=== PATIENT | female | born 1980 | race Caucasian/White ===

== ENCOUNTER 2019-05-23 16:34 | Emergency (ER) | payer SELFPAY ==
[2019-05-23 17:01] LABS: Absolute Lymphocytes (CBC) 2.4 K/uL (0.7-4.9); Hematocrit 39.2 % (36.0-45.0); Lymphocytes % 25.8 % (15.3-44.8); MPV 10.2 fL (7.6-11.3); RBC Red Blood Cell Count 4.57 M/uL (3.86-4.86)
[2019-05-23 17:32] LABS: Potassium 3.6 mmol/L (3.5-5.1)
--- NOTE | 2019-05-23 17:50 | RAD REPORT ---
EXAM DESCRIPTION: US - Transvaginal OB - 05/23/2019 5:35 pm CLINICAL HISTORY: with pelvic pain COMPARISON: None. FINDINGS: The uterus measures 9 x 4 x 5 centimeters. A normal appearing gestational sac is present within the endometrium. Subchorionic bleed is not seen. Within this is a yolk sac and pole with a crown-rump length 1.1 centimeters. Cardiac activity 133 beats per minute Right and left ovary appear normal. . An adnexal mass is not noted. No significant free fluid is seen. IMPRESSION: Single live intrauterine with an estimated gestational age 7 weeks 1 day [place] 01/08/2020
[2019-05-23 18:03] LABS: Urine Blood NEGATIVE (NEG); Urine Glucose NEGATIVE (NEG); Urine Protein NEGATIVE (NEG); Urine Specific Gravity >1.030 (1.005-1.030)
--- NOTE | 2019-05-23 18:53 | EDPHYS ---
Physician Documentation [facility] Name: Pauline Russell Age: 38 yrs Sex: Female : 1980 Arrival Date: 05/23/2019 Time: 16:36 Bed 27 Private MD: ED Physician Martin Paredes HPI: 05/23 17:04 This 38 yrs old Female presents to ER via Ambulatory with complaints of snw Abdominal Pain, 8 wks . 17:04 The patient presents with abdominal pain in the lower abdomen. Onset: The snw symptoms/episode began/occurred suddenly, yesterday, and became persistent. The symptoms do not radiate. Associated signs and symptoms: none. The symptoms are described as sharp, shooting. Severity of pain: At its worst the pain was mild moderate in the emergency department the pain is unchanged. The patient has not experienced similar symptoms in the past. has not seen OB at [facility] for this , + miscarriage at 16-17 wks in 2018. 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 - Coronavirus screen:: The patient has NOT traveled to [place] in the past 14 days. The patient has NOT had contact with known/suspected case of Coronavirus?. - Social history:: Smoking status: Patient denies any tobacco usage or history of. - Ebola Screening: : Patient negative for fever greater than or equal to 101.5 degrees Fahrenheit, and additional compatible Ebola Virus Disease symptoms Patient denies exposure to infectious person Patient denies travel to an Ebola-affected area in the 21 days before illness onset No symptoms or risks identified at this time. ROS: 17:02 Constitutional: Negative for fever, chills, and weight loss, Eyes: Negative for injury, snw pain, redness, and discharge, ENT: Negative for injury, pain, and discharge, Neck: Negative for injury, pain, and swelling, Cardiovascular: Negative for chest pain, palpitations, and edema, Respiratory: Negative for shortness of breath, cough, wheezing, and pleuritic chest pain, Abdomen/GI: Positive for abdominal pain, nausea, denies vomiting, diarrhea, and constipation, Back: Negative for injury and pain, : Negative for injury, bleeding, discharge, and swelling, MS/Extremity: Negative for injury and deformity, Skin: Negative for injury, rash, and discoloration, Neuro: Negative for headache, weakness, numbness, tingling, and seizure, Psych: Negative for depression, anxiety, suicide ideation, homicidal ideation, and hallucinations. Exam: 17:02 Constitutional: This is a well developed, well nourished patient who is awake, alert, snw and in no acute distress. Head/Face: Normocephalic, atraumatic. Eyes: Pupils equal round and reactive to light, extra-ocular motions intact. Lids and lashes normal. Conjunctiva and sclera are non-icteric and not injected. Cornea within normal limits. Periorbital areas with no swelling, redness, or edema. ENT: Nares patent. No nasal discharge, no septal abnormalities noted. Tympanic membranes are normal and external auditory canals are clear. Oropharynx with no redness, swelling, or masses, exudates, or evidence of obstruction, uvula midline. Mucous membranes moist. Neck: Trachea midline, no thyromegaly or masses palpated, and no cervical lymphadenopathy. Supple, full range of motion without nuchal rigidity, or vertebral point tenderness. No Meningismus. Chest/axilla: Normal chest wall appearance and motion. Nontender with no deformity. No lesions are appreciated. Cardiovascular: Regular rate and rhythm with a normal S1 and S2. No gallops, murmurs, or rubs. Normal PMI, no JVD. No pulse deficits. Respiratory: Lungs have equal breath sounds bilaterally, clear to auscultation and percussion. No rales, rhonchi or wheezes noted. No increased work of breathing, no retractions or nasal flaring. Back: No spinal tenderness. No costovertebral tenderness. Full range of motion. Skin: Warm, dry with normal turgor. Normal color with no rashes, no lesions, and no evidence of cellulitis. MS/ Extremity: Pulses equal, no cyanosis. Neurovascular intact. Full, normal range of motion. Neuro: Awake and alert, GCS 15, oriented to person, place, time, and situation. Cranial nerves II-XII grossly intact. Motor strength 5/5 in all extremities. Sensory grossly intact. Cerebellar exam normal. Normal gait. Psych: Awake, alert, with orientation to person, place and time. Behavior, mood, and affect are within normal limits. 17:02 Abdomen/GI: Inspection: abdomen appears normal, Bowel sounds: normal, Palpation: moderate abdominal tenderness, in the right lower quadrant and left lower quadrant. Vital Signs: 16:45 BP 130 / 76; Pulse 88; Resp 17 S; Temp 98(O); Pulse Ox 100% on R/A; Weight 63.5 kg (R); ca1 Height 5 ft. 4 in. (162.56 cm) (R); Pain 6/10; 17:44 BP 119 / 88; Pulse 72; Resp 15 S; Pulse Ox 100% on R/A; ca1 19:17 BP 127 / 78; Pulse 70; Resp 18; Temp 98; Pulse Ox 100% on R/A; mg2 16:45 Body Mass Index 24.03 (63.50 kg, 162.56 cm) ca1 MDM: 16:45 Patient medically screened. snw 18:54 Data reviewed: vital signs, nurses notes. Data interpreted: Pulse oximetry: on room air snw is 100 %. Interpretation: normal. Counseling: I had a detailed discussion with the patient and/or guardian regarding: the historical points, exam findings, and any diagnostic results supporting the discharge/admit diagnosis, the presence of at least one elevated blood pressure reading (>120/80) during this emergency department visit, lab results, radiology results, the need for outpatient follow up, to return to the emergency department if symptoms worsen or persist or if there are any questions or concerns that arise at home. Special discussion: Based on the history and exam findings, there is no indication for further emergent testing or inpatient evaluation. I discussed with the patient/guardian the need to see the OB Gyne specialist for further evaluation of the symptoms. 05/23 16:39 Order name: Quantitative Hcg; Complete Time: 17:53 snw 05/23 16:39 Order name: Abo/rh Typing; Complete Time: 18:14 snw 05/23 16:39 Order name: Basic Metabolic Panel; Complete Time: 17:53 snw 05/23 16:39 Order name: CBC with Diff; Complete Time: 17:53 snw 05/23 16:57 Order name: Urine Dipstick--Ancillary (enter results); Complete Time: 18:14 bd 05/23 16:57 Order name: Urine --Ancillary (enter results); Complete Time: 18:14 bd 05/23 16:39 Order name: Urine Test (obtain specimen); Complete Time: 16:56 snw 05/23 16:39 Order name: IV Saline Lock; Complete Time: 16:47 snw 05/23 16:39 Order name: Labs collected and sent; Complete Time: 16:47 snw 05/23 16:39 Order name: NPO; Complete Time: 16:47 snw 05/23 16:39 Order name: Urine Dipstick-Ancillary (obtain specimen); Complete Time: 16:56 snw 05/23 16:53 Order name: US Transvaginal Ob; Complete Time: 18:49 snw 05/23 17:53 Order name: PO challenge: juice please; Complete Time: 18:04 snw Administered Medications: 19:00 Drug: Tylenol 1000 mg Route: PO; mg2 19:16 Follow up: Response: No adverse reaction; Medication administered at discharge. mg2 Disposition: 05/23/19 18:52 Discharged to Home. Impression: state, Lower abdominal pain, unspecified. - Condition is Stable. - Discharge Instructions: Abdominal Pain During , High-Fiber Diet, Intestinal Gas and Gas Pains, Pediatric, First Trimester of . - Prescriptions for Vitamin 27- 0.8 mg Oral Tablet - take 1 tablet by ORAL route once daily; 30 tablet. - Work release form, Medication Reconciliation Form, Thank You Letter, Antibiotic Education, Prescription Opioid Use form. - Follow up: Emergency Department; When: As needed; Reason: Worsening of condition. Follow up: Private Physician; When: 1 - 2 days; Reason: Recheck today's complaints, Continuance of care, Re-evaluation by your physician. Addendum: 05/26/2019 07:12 Co-signature as Attending Physician, Martin Paredes MD. r n Signatures: Dispatcher [employer] EDMS Izabella White, VICE PRESIDENT OF BUSINESS DEVELOPMENT-C VICE PRESIDENT OF BUSINESS DEVELOPMENT-Csnw Martin Paredes MD MD rn Gardose, Michele, RN RN mg2 Acob, Amara RN RN ca1 Corrections: (The following items were deleted from the chart) 05/23 19:18 18:52 05/23/2019 18:52 Discharged to Home. Impression: state; Lower abdominal mg2 pain, unspecified. Condition is Stable. Forms are Medication Reconciliation Form, Thank You Letter, Antibiotic Education, Prescription Opioid Use. Follow up: Emergency Department; When: As needed; Reason: Worsening of condition. Follow up: Private Physician; When: 1 - 2 days; Reason: Recheck today's complaints, Continuance of care, Re-evaluation by your physician. snw
--- NOTE | 2019-05-23 18:53 | ER ---
Nurse's Notes [facility] Name: Pauline Russell Age: 38 yrs Sex: Female : 1980 Arrival Date: 05/23/2019 Time: 16:36 Bed 27 Private MD: Diagnosis: state;Lower abdominal pain, unspecified Presentation: 05/23 16:42 Presenting complaint: Patient states: 8 weeks . Lower abdominal pain since last ca1 night, worst within the last 2 hrs. Sharp, intermittent. Reports nausea. Denies vaginal bleeding. Reports previous miscarriage last February 2019 at 15-16 wk of . Transition of care: patient was not received from another setting of care. Onset of symptoms was May 23, 2019. Risk Assessment: Do you want to hurt yourself or someone else? Patient reports no desire to harm self or others. Initial Sepsis Screen: Does the patient meet any 2 criteria? No. Patient's initial sepsis screen is negative. Does the patient have a suspected source of infection? No. Patient's initial sepsis screen is negative. Care prior to arrival: None. 16:42 Method Of Arrival: Ambulatory ca1 16:42 Acuity: MARKUS 3 ca1 Triage Assessment: 16:45 General: Appears in no apparent distress. comfortable, Behavior is calm, cooperative, ca1 appropriate for age. Pain: Complains of pain in right lower quadrant and left lower quadrant Pain does not radiate. Pain currently is 6 out of 10 on a pain scale. at worst was 10 out of 10 on a pain scale. Quality of pain is described as sharp, Pain began 1 day ago. Is intermittent. EENT: No deficits noted. No signs and/or symptoms were reported regarding the EENT system. Neuro: Level of Consciousness is awake, alert, obeys commands, Oriented to person, place, time, situation, Appropriate for age. Cardiovascular: Heart tones S1 S2 present Capillary refill < 3 seconds Patient's skin is warm and dry. Respiratory: Airway is patent Respiratory effort is even, unlabored, Respiratory pattern is regular, symmetrical, Breath sounds are clear bilaterally. GI: Abdomen is round non-distended, Bowel sounds present X 4 quads. Abd is soft and non tender X 4 quads. GI: Reports nausea. : No signs and/or symptoms were reported regarding the genitourinary system. Derm: Skin is intact, is healthy with good turgor, Skin is pink, warm \T\ dry. Musculoskeletal: Circulation, motion, and sensation intact. Capillary refill < 3 seconds. 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 - Coronavirus screen:: The patient has NOT traveled to [place] in the past 14 days. The patient has NOT had contact with known/suspected case of Coronavirus?. - Social history:: Smoking status: Patient denies any tobacco usage or history of. - Ebola Screening: : Patient negative for fever greater than or equal to 101.5 degrees Fahrenheit, and additional compatible Ebola Virus Disease symptoms Patient denies exposure to infectious person Patient denies travel to an Ebola-affected area in the 21 days before illness onset No symptoms or risks identified at this time. Screenin:48 Abuse screen: Denies threats or abuse. Denies injuries from another. Nutritional mg2 screening: No deficits noted. Tuberculosis screening: No symptoms or risk factors identified. Fall Risk IV access (20 points). Assessment: 16:49 Reassessment: SEE TRIAGE ASSESSMENT. ca1 17:44 Reassessment: Patient appears in no apparent distress at this time. Patient and/or ca1 family updated on plan of care and expected duration. Pain level reassessed. Patient is alert, oriented x 3, equal unlabored respirations, skin warm/dry/pink. 19:17 Reassessment: Patient appears in no apparent distress at this time. Patient states mg2 feeling better. Vital Signs: 16:45 BP 130 / 76; Pulse 88; Resp 17 S; Temp 98(O); Pulse Ox 100% on R/A; Weight 63.5 kg (R); ca1 Height 5 ft. 4 in. (162.56 cm) (R); Pain 6/10; 17:44 BP 119 / 88; Pulse 72; Resp 15 S; Pulse Ox 100% on R/A; ca1 19:17 BP 127 / 78; Pulse 70; Resp 18; Temp 98; Pulse Ox 100% on R/A; mg2 16:45 Body Mass Index 24.03 (63.50 kg, 162.56 cm) ca1 ED Course: 16:36 Patient arrived in ED. mr 16:38 Amara Ann, RN is Primary Nurse. ca1 16:39 [facility] White [facility]C [facility] snw 16:39 Martin Paredes MD is Attending Physician. snw 16:44 Triage completed. ca1 16:45 Arm band placed on right wrist. ca1 16:48 No provider procedures requiring assistance completed. Inserted saline lock: 20 gauge mg2 in right antecubital area, using aseptic technique. Blood collected. 16:49 Patient has correct armband on for positive identification. Placed in gown. Bed in low ca1 position. Call light in reach. Side rails up X 1. campus monitor on. Pulse ox on. NIBP on. Warm blanket given. 17:35 US Transvaginal Ob In Process Unspecified. EDMS 19:18 IV discontinued, intact, bleeding controlled, No redness/swelling at site. Pressure mg2 dressing applied. Administered Medications: 19:00 Drug: Tylenol 1000 mg Route: PO; mg2 19:16 Follow up: Response: No adverse reaction; Medication administered at discharge. mg2 Outcome: 18:52 Discharge ordered by . snw 19:18 Discharged to home ambulatory. mg2 19:18 Condition: stable 19:18 Discharge instructions given to patient, Instructed on discharge instructions, follow up and referral plans. medication usage, Demonstrated understanding of instructions, follow-up care, medications, Prescriptions given X 1. 19:18 Patient left the ED. mg2 Signatures: Dispatcher [employer] EDVT Izabella White FNP-C [facility] Paula SawyerGenaro, RN RN mg2 Amara Ann, SATHYA RN ca1
[2019-05-23] MEDS ORDERED: ACETAMINOPHEN 500 MG TAB ONE (19:01)
[2019-05-23 19:56] VITALS: TEMP 98; O2SAT 100
[2019-05-23 19:58] VITALS: BP 127/78
== END 2019-05-23 19:18 | disposition home or self-care (01) ==
LOC: ER 16:34
DX: O26.891 Other specified pregnancy related conditions, first trimester (principal); R10.30 Lower abdominal pain, unspecified
CPT/HCPCS: 36415; 76817; 80048; 81003; 81025; 84702; 85025; 86900; 86901; 99284

== ENCOUNTER → 2023-04-20 | Emergency (ER) | payer SELFPAY ==
[~2023-04-20] MED LIST: ACETAMINOPHEN 500 MG TAB ONE; DIPHENHYDRAMINE 50 MG/ML VIAL ONE; METOCLOPRAMIDE 10 MG/2mL INJ ONE; Magnesium Sulfate 2gm IVPB 2 G/50 ML BAG IV ONE; NA CHLORIDE 0.9% 1,000 ML ONE
[2023-04-20 17:41] LABS: Absolute Lymphocytes (CBC) 1.8 K/uL (0.7-4.9); Hematocrit 44.9 % (36.0-45.0); MCV 87.3 fL (80-100); MPV 8.3 fL (7.6-11.3); Platelets 279 thou/uL (152-406); RBC Red Blood Cell Count 5.14 M/uL (3.86-4.86)
--- NOTE | 2023-04-20 18:04 | RAD REPORT ---
EXAM DESCRIPTION: RAD - Chest Single View - 04/20/2023 5:59 pm CLINICAL HISTORY: CHEST PAIN Chest pain. COMPARISON: <Comparisons> FINDINGS: Portable technique limits examination quality. The lungs are grossly clear. The heart is normal in size. No displaced fractures. IMPRESSION: No acute intrathoracic process suspected.
[2023-04-20 18:10] LABS: ALT/SGPT 83 U/L (13-56); Albumin 3.4 g/dL (3.4-5.0); Alkaline Phosphatase 208 U/L (45-117); BUN Blood Urea Nitrogen 22 mg/dL (7-18); Bicarbonate 23 mEq/L (21-32); Bilirubin Total 0.6 mg/dL (0.2-1.0); Glomerular Filtration Rate 98 ml/min (=/>90); Glucose Level 129 mg/dL (74-106); Lipase 38 U/L (13-75); NT PRO-BNP 7 pg/mL (<125); Protein, Total 7.9 g/dL (6.4-8.2); Sodium Level 134 mEq/L (136-145); Troponin High Sensitivity 3.1 pg/mL (<58.9)
[2023-04-20 18:12] LABS: AST/SGOT 101 U/L (15-37); Bilirubin Direct < 0.1 mg/dL (0-0.2); Bilirubin Indirect, Calculated ND mg/dL (0.2-0.8); Magnesium 1.8 mg/dL (1.6-2.4); Potassium 3.7 mEq/L (3.5-5.1)
--- NOTE | 2023-04-20 18:16 | RAD REPORT ---
EXAM DESCRIPTION: CT - Head Brain Wo Cont - 04/20/2023 6:08 pm CLINICAL HISTORY: HEADACHE Headache, drowsiness COMPARISON: <Comparisons> TECHNIQUE: All CT scans are performed using dose optimization technique as appropriate and may inclu de automated exposure control or mA/KV adjustment according to patient size. FINDINGS: No intracranial hemorrhage, hydrocephalus or extra-axial fluid collection.No areas of brai n edema or evidence of midline shift. The paranasal sinuses and mastoids are clear. The calvarium is intact. IMPRESSION: No acute intracranial abnormality.
[2023-04-20 18:42] LABS: Specific Gravity 1.025 (1.005-1.030); Urine Bacteria None Seen /HPF (<20); Urine Bilirubin NEGATIVE (Negative); Urine Blood Negative (Negative); Urine Clarity Clear (Clear); Urine Color Light-Yellow (Yellow); Urine Glucose NEGATIVE (Negative); Urine Mucus Slight /HPF (None Seen); Urine Protein TRACE (Negative); Urine RBC <5 /HPF (None Seen); Urine Urobilinogen Normal (Normal)
[2023-04-20 18:43] LABS: Specific Gravity 1.025 (1.005-1.030)
--- NOTE | 2023-04-20 19:18 | ER ---
Nurse's Notes [facility] Name: Pauline Russell Age: 42 yrs Sex: Female : 1980 Arrival Date: 04/20/2023 Time: 16:57 Bed 18 Private MD: Diagnosis: Nausea with vomiting, unspecified;Headache;Chest pain, unspecified;Diarrhea, unspecified Presentation: 04/20 17:57 Chief complaint: EMS states: toned out to patient work for nausea and chest pain. ld1 Coronavirus screen: At this time, the client does not indicate any symptoms associated with coronavirus-19. Ebola Screen: No symptoms or risks identified at this time. Initial Sepsis Screen: Does the patient meet any 2 criteria? No. Patient's initial sepsis screen is negative. Does the patient have a suspected source of infection? No. Patient's initial sepsis screen is negative. Risk Assessment: Do you want to hurt yourself or someone else? Patient reports no desire to harm self or others. Onset of symptoms was April 20, 2023. 17:57 Method Of Arrival: EMS: [facility] ld1 17:57 Acuity: MARKUS 3 ld1 Triage Assessment: 17:59 General: Appears in no apparent distress. comfortable, Behavior is cooperative, ld1 anxious. Pain: Complains of pain in chest Pain does not radiate. Pain currently is 6 out of 10 on a pain scale. Quality of pain is described as throbbing, Pain began 1 day ago. Is continuous. EENT: No signs and/or symptoms were reported regarding the EENT system. Neuro: Level of Consciousness is awake, alert, obeys commands, Oriented to person, place, time, situation. Cardiovascular: Capillary refill < 3 seconds Patient's skin is warm and dry. Respiratory: Airway is patent Respiratory effort is even, unlabored. GI: Abdomen is round non-distended. : No signs and/or symptoms were reported regarding the genitourinary system. Derm: No signs and/or symptoms reported regarding the dermatologic system. Musculoskeletal: No signs and/or symptoms reported regarding the musculoskeletal system. 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 - Social history:: Smoking status: Patient denies any tobacco usage or history of. Patient/guardian denies using alcohol. - Family history:: not pertinent. Screenin:08 [facility] ED Fall Risk Assessment (Adult) History of falling in the last 3 months, me1 including since admission No falls in past 3 months (0 pts) Confusion or Disorientation No (0 pts) Intoxicated or Sedated No (0 pts) Impaired Gait No (0 pts) Mobility Assist Device Used No (0 pt) Altered Elimination No (0 pt) Score/Fall Risk Level 0 - 2 = Low Risk Maintained a safe environment, Provided non-skid footwear, Hourly rounding (assess needs \T\ fall precautionary measures) done. Abuse screen: Denies threats or abuse. Nutritional screening: No deficits noted. Tuberculosis screening: No symptoms or risk factors identified. Assessment: 19:05 General: Appears uncomfortable, ill, obese, well groomed, well developed, well me1 nourished, Behavior is calm, cooperative, appropriate for age, Reports c/o migraine, nausea and chest pain. Pain: Complains of pain in chest and head Pain does not radiate. Pain currently is 8 out of 10 on a pain scale. Quality of pain is described as sharp, Pain began gradually, 2-3 days ago. Is continuous. Neuro: Level of Consciousness is awake, alert, obeys commands, Oriented to person, place, time, situation, Appropriate for age. Cardiovascular: Capillary refill < 3 seconds Patient's skin is warm and dry. Respiratory: Airway is patent Respiratory effort is even, unlabored, Respiratory pattern is regular, symmetrical. GI: Reports nausea. Vital Signs: 17:01 BP 173 / 102; Pulse 84; Resp 16; Pulse Ox 100% on R/A; me1 17:57 BP 151 / 99; Pulse 110; Resp 22; Temp 97.9(TE); Pulse Ox 97% on R/A; Pain 6/10; ld1 18:00 BP 149 / 99; Pulse 97; Resp 17; Pulse Ox 98% on R/A; me1 18:00 BP 135 / 90; Pulse 92; Resp 16; Pulse Ox 99% on R/A; me1 19:30 BP 130 / 82; Pulse 86; Resp 18; Pulse Ox 99% on R/A; cm10 17:57 Pain Scale: Adult ld1 ED Course: 17:05 Patient arrived in ED. mv 17:06 Jonathan Cedillo MD is Attending Physician. rt 17:40 Lipase Sent. bc6 17:40 Basic Metabolic Panel Sent. bc6 17:40 CBC with Diff Sent. bc6 17:40 LFT's Sent. bc6 17:40 Magnesium Sent. bc6 17:40 NT PRO-BNP Sent. bc6 17:40 Troponin HS Sent. bc6 17:40 Missed attempt(s): 20 gauge in left antecubital area. bc6 17:45 Arm band placed on Patient placed in an exam room, on a stretcher. ll1 17:59 Triage completed. ld1 18:00 Prudence King, SATHYA is Primary Nurse. me1 18:01 XRAY Chest (1 view) In Process Unspecified. EDMS 18:10 CT Head Brain wo Cont In Process Unspecified. EDMS 18:37 Inserted saline lock: 22 gauge in right antecubital area, using aseptic technique. me1 19:08 No provider procedures requiring assistance completed. me1 19:08 Patient has correct armband on for positive identification. Bed in low position. Call me1 light in reach. Side rails up X2. Provided Education on: POC. Verbalized understanding. . 19:57 IV discontinued, intact, bleeding controlled, No redness/swelling at site. Pressure cm10 dressing applied. Administered Medications: 18:37 Drug: metoCLOPramide IVP 10 mg IVP once; over 1 to 2 minutes Route: IVP; Site: right me1 antecubital; 19:04 Follow up: Response: No adverse reaction; Nausea is decreased me1 18:37 Drug: diphenhydrAMINE IVP 25 mg IVP once Route: IVP; Site: right antecubital; me1 19:04 Follow up: Response: No adverse reaction me1 18:37 Drug: Acetaminophen PO 1000 mg PO once Route: PO; me1 19:04 Follow up: Response: No adverse reaction me1 18:37 Drug: Magnesium Sulfate IVPB 2 grams IVPB once over 2 hrs Route: IVPB; Infused Over: 2 me1 hrs; Site: right antecubital; 19:57 Follow up: Response: No adverse reaction; IV Status: Completed infusion cm10 18:38 Drug: NS 0.9% IV 1000 ml IV at 1 bolus Per protocol; 1000 mL bolus Route: IV; Rate: 1 me1 bolus; Site: right antecubital; 19:58 Follow up: Response: No adverse reaction; IV Status: Completed infusion; IV Intake: cm10 1000ml Medication: 19:10 VIS not applicable for this client. me1 Intake: 19:58 IV: 1000ml; Total: 1000ml. cm10 Outcome: 19:17 Discharge ordered by MD. rt 19:58 Discharged to home ambulatory, cm10 19:58 Condition: good 19:58 Discharge instructions given to patient, Instructed on discharge instructions, follow up and referral plans. medication usage, Demonstrated understanding of instructions, follow-up care, medications, Prescriptions given X 1, 19:59 Patient left the ED. cm10 Signatures: Dispatcher [employer] Tiarra Grande RN RN 1 Elva Villanueva RN RN mine1 Jonathan Cedillo MD MD rt Cathie Tony 6 Yoly Back RN RN 10 Prudence King RN RN me1 Katarzyna Birmingham mv Corrections: (The following items were deleted from the chart) 17:59 17:59 Allergies: No Known Allergies; ld1 ld1 19:04 17:57 Chief complaint: EMS states: toned out to patient work for nausea and chest pain. me1 ld1
--- NOTE | 2023-04-20 19:18 | EDPHYS ---
Physician Documentation [facility] Name: Pauline Russell Age: 42 yrs Sex: Female : 1980 Arrival Date: 04/20/2023 Time: 16:57 Bed 18 Private MD: ED Physician Jonathan Cedillo HPI: 04/20 19:48 This 42 yrs old Female presents to ER via EMS with complaints of Headache. rt 19:48 Patient presents to the ED with headache, nausea, vomiting, diarrhea, chest discomfort rt starting yesterday. She reports that the headache is frontal in nature, aching in nature. She does have history of chronic headaches, similar in character but worse in severity today. Denies other acute complaints at this time, symptoms are moderate in severity, no other aggravating or elevating factors.. [employer]: 19:09 LMP 04/10/2023, unknown me1 Historical: - Allergies: 17:59 Iodine; ld1 17:59 PENICILLINS; ld1 - PMHx: 17:59 Anxiety; Hypertensive disorder; ld1 - Immunization history:: Adult Immunizations up to date. - Social history:: Smoking status: Patient denies any tobacco usage or history of. Patient/guardian denies using alcohol. - Family history:: not pertinent. ROS: 19:48 Constitutional: Negative for fever, chills, and weight loss, Respiratory: Negative for rt shortness of breath, cough, wheezing, and pleuritic chest pain, MS/Extremity: Negative for injury and deformity, Skin: Negative for injury, rash, and discoloration, Psych: Negative for depression, anxiety, suicide ideation, homicidal ideation, and hallucinations, 19:48 Cardiovascular: Positive for chest pain, Negative for edema, 19:48 Abdomen/GI: Positive for nausea, vomiting, and diarrhea, Negative for abdominal pain, 19:48 Neuro: Positive for headache, Negative for altered mental status, Exam: 19:48 Constitutional: This is a well developed, well nourished patient who is awake, alert, rt and in no acute distress. Head/Face: Normocephalic, atraumatic. Chest/axilla: Normal chest wall appearance and motion. Nontender with no deformity. No lesions are appreciated. Cardiovascular: Regular rate and rhythm with a normal S1 and S2. No gallops, murmurs, or rubs. Normal PMI, no JVD. No pulse deficits. Respiratory: Lungs have equal breath sounds bilaterally, clear to auscultation and percussion. No rales, rhonchi or wheezes noted. No increased work of breathing, no retractions or nasal flaring. Abdomen/GI: Soft, non-tender, with normal bowel sounds. No distension or tympany. No guarding or rebound. No evidence of tenderness throughout. Skin: Warm, dry with normal turgor. Normal color with no rashes, no lesions, and no evidence of cellulitis. MS/ Extremity: Pulses equal, no cyanosis. Neurovascular intact. Full, normal range of motion. Neuro: Awake and alert, GCS 15, oriented to person, place, time, and situation. Cranial nerves II-XII grossly intact. Motor strength 5/5 in all extremities. Sensory grossly intact. Cerebellar exam normal. Normal gait. Psych: Awake, alert, with orientation to person, place and time. Behavior, mood, and affect are within normal limits. 19:48 ECG was reviewed by the Attending Physician. Vital Signs: 17:01 BP 173 / 102; Pulse 84; Resp 16; Pulse Ox 100% on R/A; me1 17:57 BP 151 / 99; Pulse 110; Resp 22; Temp 97.9(TE); Pulse Ox 97% on R/A; Pain 6/10; ld1 18:00 BP 149 / 99; Pulse 97; Resp 17; Pulse Ox 98% on R/A; me1 18:00 BP 135 / 90; Pulse 92; Resp 16; Pulse Ox 99% on R/A; me1 19:30 BP 130 / 82; Pulse 86; Resp 18; Pulse Ox 99% on R/A; cm10 17:57 Pain Scale: Adult ld1 MDM: 17:06 Patient medically screened. rt 19:48 Differential Diagnosis Migraine, intracranial hemorrhage, ACS, nonspecific chest pain, rt gastroenteritis, viral send. Data reviewed: vital signs, nurses notes, lab test result(s), EKG, radiologic studies. I considered the following discharge prescriptions or medication management in the emergency department Medications were administered in the Emergency Department. See MAR. Independent interpretation of the following test(s) in the Emergency Department CT Scan: My interpretation is No intracranial hemorrhage seen on interpretation of CT scan images. Test considered but Not performed: CT: Benign abdominal examination, CT scan of the abdomen pelvis not indicated. Care significantly affected by the following chronic conditions: Hypertension. Counseling: I had a detailed discussion with the patient and/or guardian regarding the historical points, exam findings, and any diagnostic results supporting the discharge/admit diagnosis, lab results, radiology results, the need for outpatient follow up, to return to the emergency department if symptoms worsen or persist or if there are any questions or concerns that arise at home. Response to treatment: the patient's symptoms have markedly improved after treatment. 04/20 17:13 Order name: Basic Metabolic Panel; Complete Time: 18:28 rt 04/20 17:13 Order name: CBC with Diff; Complete Time: 18:28 rt 04/20 17:13 Order name: LFT's; Complete Time: 18:28 rt 04/20 17:13 Order name: Magnesium; Complete Time: 18:28 rt 04/20 17:13 Order name: NT PRO-BNP; Complete Time: 18:28 rt 04/20 17:13 Order name: Troponin HS; Complete Time: 18:28 rt 04/20 17:13 Order name: Lipase; Complete Time: 18:28 rt 04/20 17:13 Order name: UAM; Complete Time: 18:44 rt 04/20 18:37 Order name: Test, Urine; Complete Time: 18:51 EDMS 04/20 17:13 Order name: XRAY Chest (1 view); Complete Time: 18:28 rt 04/20 17:13 Order name: CT Head Brain wo Cont; Complete Time: 18:28 rt 04/20 17:13 Order name: EKG; Complete Time: 17:14 rt 04/20 17:13 Order name: Cardiac monitoring; Complete Time: 19:00 rt 04/20 17:13 Order name: EKG - Nurse/Tech; Complete Time: 19:00 rt 04/20 17:13 Order name: IV Saline Lock; Complete Time: 18:38 rt 04/20 17:13 Order name: Labs collected and sent; Complete Time: 17:40 rt 04/20 17:13 Order name: O2 Per Protocol; Complete Time: 18:38 rt 04/20 17:13 Order name: O2 Sat Monitoring; Complete Time: 18:38 rt EC:48 Rate is 112 beats/min. Rhythm is regular, Sinus tachycardia with No ectopy. QRS [place] is rt Normal. MD interval is normal. QRS interval is normal. QT interval is normal. No Q waves. T waves are Normal. No ST changes noted. Administered Medications: 18:37 Drug: metoCLOPramide IVP 10 mg IVP once; over 1 to 2 minutes Route: IVP; Site: right me1 antecubital; 19:04 Follow up: Response: No adverse reaction; Nausea is decreased me1 18:37 Drug: diphenhydrAMINE IVP 25 mg IVP once Route: IVP; Site: right antecubital; me1 19:04 Follow up: Response: No adverse reaction me1 18:37 Drug: Acetaminophen PO 1000 mg PO once Route: PO; me1 19:04 Follow up: Response: No adverse reaction me1 18:37 Drug: Magnesium Sulfate IVPB 2 grams IVPB once over 2 hrs Route: IVPB; Infused Over: 2 me1 hrs; Site: right antecubital; 19:57 Follow up: Response: No adverse reaction; IV Status: Completed infusion cm10 18:38 Drug: NS 0.9% IV 1000 ml IV at 1 bolus Per protocol; 1000 mL bolus Route: IV; Rate: 1 me1 bolus; Site: right antecubital; 19:58 Follow up: Response: No adverse reaction; IV Status: Completed infusion; IV Intake: cm10 1000ml Disposition Summary: 04/20/23 19:17 Discharge Ordered Notes: Location: Home rt Problem: new rt Symptoms: have improved rt Condition: Stable rt Diagnosis - Nausea with vomiting, unspecified rt - Headache rt - Chest pain, unspecified rt - Diarrhea, unspecified rt Followup: rt - With: Private Physician - When: 2 - 3 days - Reason: Discharge Instructions: - Discharge Summary Sheet rt - Nonspecific Chest Pain, Adult rt - Diarrhea, Adult rt - General Headache Without Cause rt - Nausea and Vomiting, Adult rt Forms: - Medication Reconciliation Form rt - Thank You Letter rt - Antibiotic Education rt - Prescription Opioid Use rt - Patient Portal Instructions rt - Leadership Thank You Letter rt Prescriptions: - Reglan 10 mg Oral tablet - take 1 tablet ORAL route every 6 hours As needed for headache, nausea; 18 rt tablet; Refills: 0, Product Selection Permitted Signatures: Dispatcher [employer] Elva Disla RN RN ld1 Jonathan Cedillo MD MD rt Prudence King RN RN me1 Yoly Back RN cm10 Corrections: (The following items were deleted from the chart) 1759 17:59 Allergies: No Known Allergies; ld1 ld1 18:37 17:14 TEST, SERUM+SC.LAB.BRZ ordered. EDMS EDMS
[2023-04-20 23:28] VITALS: TEMP 97.9; O2SAT 99
[2023-04-20 23:39] VITALS: BP 130/82
== END ==
LOC: ER 16:57
DX: R51.9 Headache, unspecified (principal); R11.2 Nausea with vomiting, unspecified; R19.7 Diarrhea, unspecified; R07.9 Chest pain, unspecified
CPT/HCPCS: 36415; 70450; 71045; 80048; 80076; 81001; 81025; 83690; 83735; 83880; 84484; 85025; 93005; J1200; J2765; J3475; J7030

== ENCOUNTER 2024-02-03 14:40 | Emergency (ER) | payer OTHER ==
--- NOTE | 2024-02-03 16:03 | RAD REPORT ---
EXAMINATION: ONE VIEW CHEST XR CLINICAL INDICATION: Female, 43 years old.CHEST PAIN TECHNIQUE: 1 View, AP supine, X-ray of the chest was performed. [id number]. COMPARISON: No prior exam. FINDINGS: Lungs and pleura: Clear lungs. No effusion. Heart and mediastinum: Normal heart size. Unremarkable mediastinal contours. Osseous structures: No acute abnormality. Tubes/lines: None Other: None. IMPRESSION: No acute intrathoracic abnormality.
[2024-02-03 17:02] LABS: Absolute Basophils 0.1 K/uL (0-0.5); Absolute Eosinophils 0.1 K/uL (0-0.5); Absolute Lymphocytes (CBC) 1.5 K/uL (0.7-4.9); Absolute Monocytes 0.5 K/uL (0.1-1.3); Absolute Neutrophil 6.3 K/uL (1.8-8.0); Basophils % 0.7 % (0-1.3); Eosinophils % 1.6 % (0-4.4); Hematocrit 46.8 % (36.0-45.0); Hemoglobin 15.7 g/dL (12.0-15.0); Lymphocytes % 17.7 % (15.3-44.8); MCH 30.6 pg (27.0-35.0); MCHC 33.6 g/dL (32.0-36.0); MPV 9.7 fL (7.6-11.3); Monocytes % 6.4 % (3.3-12.3); Neutrophils % 73.6 % (41.7-73.7); Platelets 235 thou/uL (152-406); RBC Red Blood Cell Count 5.14 M/uL (3.86-4.86); Red Cell Distribution Width 13.2 % (12.1-15.2)
[2024-02-03] MEDS ORDERED: DIPHENHYDRAMINE 50 MG/ML VIAL ONE (17:02)
[2024-02-03] MEDS ORDERED: NA CHLORIDE 0.9% 50 ML ONE (17:03)
[2024-02-03] MEDS ORDERED: METOCLOPRAMIDE 10 MG/2mL INJ ONE (17:03)
[2024-02-03] MEDS ORDERED: NA CHLORIDE 0.9% 1,000 ML ONE (17:03)
[2024-02-03 17:09] LABS: PT Prothrombin Time 12.2 SECONDS (9.4-12.5); Protime INR 1.09
[2024-02-03 17:36] LABS: Anion Gap 10.3 mEq/L (5.0-15.0); BUN Blood Urea Nitrogen 11 mg/dL (7-18); Bicarbonate 26 mEq/L (21-32); Glomerular Filtration Rate 93 ml/min (=/>90); Glucose Level 91 mg/dL (74-106); NT PRO-BNP 14 pg/mL (<125); Potassium 3.3 mEq/L (3.5-5.1); Sodium Level 130 mEq/L (136-145); Troponin High Sensitivity < 3.0 pg/mL (<58.9)
--- NOTE | 2024-02-03 17:53 | EDPHYS ---
Physician Documentation [facility] Name: Pauline Russell Age: 43 yrs Sex: Female : 1980 Arrival Date: 02/03/2024 Time: 14:40 Bed 7 Private MD: ED Physician Margarito Myrick HPI: 02/02 15:23 This 43 yrs old Female presents to ER via Ambulatory with complaints of Chest ec2 Pain, Dizziness. 15:23 Patient with history of anxiety as well as hypertension arrives today for evaluation of ec2 chest pain and feeling unwell. Reports symptom onset of yesterday. States that she has history of anxiety and that she was similar however worse. Patient reports some lightheadedness, some whole body numbness as well. Reports some nausea and vomiting as well.. Historical: - Allergies: 15:12 Iodine; aa5 15:12 PENICILLINS; aa5 - PMHx: 15:12 Anxiety; Hypertensive disorder; aa5 - PSHx: 15:12 Right hip (Unknown); aa5 - Immunization history:: Adult Immunizations unknown. - Infectious Disease History:: Denies. - Social history:: Smoking status: Patient reports the use of cigarette tobacco products, denies chronic smoking, but will smoke occasionally. ROS: 15:23 Constitutional: as per hpi ec2 Exam: 15:23 Constitutional: GEN: NAD Head: atraumatic Eyes: EOMI Ears: External ears are ec2 normal. CV: tachycardia LUNGS: no respiratory distress ABD: non-distended SKIN: no evidence of rashes MSK: no evidence of trauma Vital Signs: 15:08 BP 153 / 103; Pulse 113; Resp 20 S; Temp 98.7(O); Pulse Ox 100% on R/A; Weight 83.91 kg aa5 (R); Height 5 ft. 4 in. (R); 17:22 BP 125 / 84; Pulse 93; Resp 16; Pulse Ox 98% on R/A; Pain 0/10; ss 17:22 BP 124 / 84; Pulse 85; Pulse Ox 98% ; ec2 18:06 BP 134 / 81; Pulse 88; Resp 16; Pulse Ox 97% on R/A; Pain 0/10; ss 15:08 Body Mass Index 31.75 (83.91 kg, 162.56 cm) aa5 17:22 Pain Scale: Adult ss 18:06 Pain Scale: Adult ss MDM: 15:19 Medical Screening Exam initiated ec2 15:23 Data reviewed: vital signs. ED course: Patient arrives today for feeling unwell. ec2 Examination remarkable for anxious individual who slightly tachycardic and otherwise in no acute distress. EKG obtained, independently reviewed and interpreted by me, shows normal sinus rhythm, rate of 99, no acute ST segment elevations, intervals are nonactionable.. 17:52 ED course: On reassessment patient with marked improvement in symptoms. Suspect anxiety ec2 causing the patient's symptoms. Will discharge home and have follow-up with primary care doctor. Return precautions given.. 02/02 15:12 Order name: Basic Metabolic Panel; Complete Time: 17:41 ec2 02/02 15:12 Order name: CBC with Diff; Complete Time: 17:22 ec2 02/02 15:12 Order name: NT PRO-BNP; Complete Time: 17:41 ec2 02/02 15:12 Order name: PT-INR; Complete Time: 17:22 ec2 02/02 15:12 Order name: Troponin HS; Complete Time: 17:41 ec2 02/02 15:12 Order name: XRAY Chest (1 view); Complete Time: 16:44 ec2 02/02 15:12 Order name: EKG; Complete Time: 15:12 ec2 02/02 15:12 Order name: Cardiac monitoring; Complete Time: 16:47 ec2 02/02 15:12 Order name: EKG - Nurse/Tech; Complete Time: 16:20 ec2 02/02 15:12 Order name: IV Saline Lock; Complete Time: 16:47 ec2 02/02 15:12 Order name: Labs collected and sent; Complete Time: 16:47 ec2 02/02 15:12 Order name: O2 Per Protocol; Complete Time: 16:47 ec2 02/02 15:12 Order name: O2 Sat Monitoring; Complete Time: 16:47 ec2 Administered Medications: 17:15 Drug: metoCLOPramide IVP 10 mg IVP once; over 1 to 2 minutes {Note: placed in 50mL NS ss to infuse slowly .} Route: IVP; Site: right antecubital; 17:55 Follow up: Response: No adverse reaction ss 17:15 Drug: diphenhydrAMINE IVP 25 mg IVP once Route: IVP; Site: right antecubital; ss 17:55 Follow up: Response: No adverse reaction ss 17:15 Drug: NS 0.9% IV 1000 ml IV at 1000 ml once; to be given as a bolus over 60 minutes ss Route: IV; Rate: 1000 ml; Site: right antecubital; 18:08 Follow up: IV Status: IV converted to saline lock; IV Intake: 600ml ss 17:59 Drug: Potassium Chloride PO 40 mEq PO once Route: PO; ss 18:06 Follow up: Response: No adverse reaction ss Disposition Summary: 02/03/24 17:53 Discharge Ordered Notes: Location: Home ec2 Condition: Stable ec2 Diagnosis - Chest pain, unspecified ec2 - Dizziness and giddiness ec2 - Hypokalemia ec2 Followup: ec2 - With: Private Physician - When: - Reason: Re-evaluation by your physician Discharge Instructions: - Discharge Summary Sheet ec2 - Nonspecific Chest Pain, Adult ec2 - Generalized Anxiety Disorder, Adult ec2 Forms: - Medication Reconciliation Form ec2 - Antibiotic Education ec2 - Prescription Opioid Use ec2 - Patient Portal Instructions ec2 - Leadership Thank You Letter ec2 Prescriptions: - Reglan 10 mg Oral Tablet - take 1 tablet ORAL route every 6 hours take 30 minutes before meals and at ec2 bedtime; 20 tablet; Refills: 0, Product Selection Permitted Signatures: Dispatcher [employer] Lauren Beaver RN RN aa5 Lelo Steel RN RN Margarito Myrick MD MD ec2 Corrections: (The following items were deleted from the chart) 15:12 15:12 PSHx: Right hip (Hypertensive disorder); aaDavid aa5
--- NOTE | 2024-02-03 17:53 | ER ---
Nurse's Notes [facility] Name: Pauline Russell Age: 43 yrs Sex: Female : 1980 Arrival Date: 02/03/2024 Time: 14:40 Bed 7 Private MD: Diagnosis: Chest pain, unspecified;Dizziness and giddiness;Hypokalemia Presentation: 02/02 15:08 Chief complaint: Patient states: "yesterday I [place] swimming at the beach and I went a aa5 little too far in so I had to struggle to swim back out and since then I just don't feel good". Pt c/o dizziness, nausea/vomiting, and chest pain since last night. Coronavirus screen: At this time, the client does not indicate any symptoms associated with coronavirus-19. Ebola Screen: Patient denies travel to an Ebola-affected area in the 21 days before illness onset. Initial Sepsis Screen: Does the patient meet any 2 criteria? HR > 90 bpm. Does the patient have a suspected source of infection? No. Patient's initial sepsis screen is negative. Risk Assessment: Do you want to hurt yourself or someone else? Patient reports no desire to harm self or others. Onset of symptoms was February 02, 2024. 15:08 Acuity: MARKUS 3 aa5 15:08 Method Of Arrival: Ambulatory aa5 Historical: - Allergies: 15:12 Iodine; aa5 15:12 PENICILLINS; aa5 - PMHx: 15:12 Anxiety; Hypertensive disorder; aa5 - PSHx: 15:12 Right hip (Unknown); aa5 - Immunization history:: Adult Immunizations unknown. - Infectious Disease History:: Denies. - Social history:: Smoking status: Patient reports the use of cigarette tobacco products, denies chronic smoking, but will smoke occasionally. Screenin:23 Abuse screen: Denies threats or abuse. Denies injuries from another. Nutritional ss screening: No deficits noted. Tuberculosis screening: Never had TB. Assessment: 17:23 General: Appears in no apparent distress. comfortable, Behavior is calm, cooperative, ss Pt reports that she was very anxious when she first came in, but feels like that is better now. General: Pt reports her chest is not hurting at this time, but her RUQ is. Pain: Complains of pain in chest and abdomen Pain currently is 7 out of 10 on a pain scale. Neuro: Level of Consciousness is awake, alert, obeys commands, Oriented to person, place, time, situation. Respiratory: Airway is patent Respiratory effort is even, unlabored, Respiratory pattern is regular, symmetrical. GI: Reports lower abdominal pain, upper abdominal pain, nausea, vomiting. : No signs and/or symptoms were reported regarding the genitourinary system. EENT: Nares are clear. Derm: Skin is intact, is healthy with good turgor, Skin is pink, warm \\T\\ dry. normal. 18:06 Reassessment: Patient appears in no apparent distress at this time. Patient and/or ss family updated on plan of care and expected duration. Pain level reassessed. Patient is alert, oriented x 3, equal unlabored respirations, skin warm/dry/pink. Patient denies pain at this time. Patient states feeling better. Patient states symptoms have improved. Vital Signs: 15:08 BP 153 / 103; Pulse 113; Resp 20 S; Temp 98.7(O); Pulse Ox 100% on R/A; Weight 83.91 kg aa5 (R); Height 5 ft. 4 in. (R); 17:22 BP 125 / 84; Pulse 93; Resp 16; Pulse Ox 98% on R/A; Pain 0/10; ss 17:22 BP 124 / 84; Pulse 85; Pulse Ox 98% ; ec2 18:06 BP 134 / 81; Pulse 88; Resp 16; Pulse Ox 97% on R/A; Pain 0/10; ss 15:08 Body Mass Index 31.75 (83.91 kg, 162.56 cm) aa5 17:22 Pain Scale: Adult ss 18:06 Pain Scale: Adult ss ED Course: 14:41 Patient arrived in ED. im 15:08 Arm band placed on. aa5 15:10 Margarito Myrick MD is Attending Physician. ec2 15:12 Triage completed. aa5 15:55 XRAY Chest (1 view) In Process Unspecified. EDMS 16:47 Jeanine Dorsey, SATHYA is Primary Nurse. tm6 16:47 Inserted saline lock: 20 gauge in right antecubital area, using aseptic technique. tm6 Blood collected. Flushed with 10 mL NS. 16:47 Basic Metabolic Panel Sent. tm6 16:48 CBC with Diff Sent. tm6 16:48 NT PRO-BNP Sent. tm6 16:48 PT-INR Sent. tm6 16:48 Troponin HS Sent. tm6 17:23 Patient has correct armband on for positive identification. Bed in low position. Call ss light in reach. Client placed on continuous cardiac and pulse oximetry monitoring. NIBP monitoring applied. 17:23 Patient maintains SpO2 saturation greater than 95% on room air. ss 18:06 No provider procedures requiring assistance completed. IV discontinued, intact, ss bleeding controlled, No redness/swelling at site. Pressure dressing applied. Administered Medications: 17:15 Drug: metoCLOPramide IVP 10 mg IVP once; over 1 to 2 minutes {Note: placed in 50mL NS ss to infuse slowly .} Route: IVP; Site: right antecubital; 17:55 Follow up: Response: No adverse reaction ss 17:15 Drug: diphenhydrAMINE IVP 25 mg IVP once Route: IVP; Site: right antecubital; ss 17:55 Follow up: Response: No adverse reaction 17:15 Drug: NS 0.9% IV 1000 ml IV at 1000 ml once; to be given as a bolus over 60 minutes ss Route: IV; Rate: 1000 ml; Site: right antecubital; 18:08 Follow up: IV Status: IV converted to saline lock; IV Intake: 600ml 17:59 Drug: Potassium Chloride PO 40 mEq PO once Route: PO; ss 18:06 Follow up: Response: No adverse reaction ss Medication: 17:23 VIS not applicable for this client. ss Intake: 18:08 IV: 600ml; Total: 600ml. Outcome: 17:53 Discharge ordered by . [email or web address] 18:06 Discharged to home ambulatory, 18:06 Condition: good 18:06 Discharge instructions given to patient, Instructed on discharge instructions, follow up and referral plans. Demonstrated understanding of instructions, follow-up care, 18:15 Patient left the ED. Signatures: Dispatcher [employer] Lauren Beaver RN RN aa5 Lelo Steel RN RN Leona Nuno Edwin, MD MD ec2 Jeanine Dorsey RN RN tm6 Corrections: (The following items were deleted from the chart) 15:12 15:12 PSHx: Right hip (Hypertensive disorder); aa5 aa5
[2024-02-03] MEDS ORDERED: POTASSIUM CL SA 10 MEQ TAB PO ONE (17:58)
[2024-02-03 18:53] VITALS: TEMP 98.7
[2024-02-03 19:05] VITALS: BP 134/81; O2SAT 97
--- NOTE | 2024-02-06 12:19 | EKG ---
Test Date: 2024-02-03 Test Time: 15:16:53 Social Psychologist: LEE MEASUREMENT RESULTS: Intervals: Rate: 99 AK: 132 QRSD: 86 QT: 378 QTc: 485 [place]: P: 55 AK: 132 QRS: 22 T: 45 INTERPRETIVE STATEMENTS: Normal sinus rhythm Biatrial enlargement Prolonged QT Abnormal ECG Compared to ECG 04/20/2023 18:52:12 Atrial abnormality now present Prolonged QT interval now present Sinus tachycardia no longer present Electronically Signed On 02-06-24 12:16:10 [employer] INTERPRETIVE RANGER by Adi Garcia
== END 2024-02-03 18:15 | disposition home or self-care (01) ==
LOC: ER 14:40
DX: R07.9 Chest pain, unspecified (principal); R42 Dizziness and giddiness; E87.6 Hypokalemia; I10 Essential (primary) hypertension; F41.9 Anxiety disorder, unspecified; Z72.0 Tobacco use
CPT/HCPCS: 96361; 85025; 80048; 36415; 85610; 84484; 83880; 71045; 96375; 96374; 99284; J2765; J1200; J7030; 93005